=== PATIENT | female | born 1950 | race Caucasian/White ===

== ENCOUNTER 2017-03-24 15:28 | Outpatient (CLI) | payer BC, OTHER | END 2017-03-24 15:29 | disposition home or self-care (01) | LOC: BICMAMMO 15:28 | PROVIDERS: ATTEND Nurse Practitioner | DX: Z12.31 Encounter for screening mammogram for malignant neoplasm of breast (principal); N64.89 Other specified disorders of breast; Z85.3 Personal history of malignant neoplasm of breast | CPT/HCPCS: 77063; 77067 ==

== ENCOUNTER 2017-03-30 14:29 | Outpatient (CLI) | payer BC | END 2017-03-30 14:30 | disposition home or self-care (01) | LOC: BICMAMMO 14:29 | PROVIDERS: ATTEND Internal Medicine | DX: R92.2 Inconclusive mammogram (principal) | CPT/HCPCS: G0279 ==

== ENCOUNTER → 2017-04-01 | Day surgery (SDC) | payer BC | LOC: BICULT 13:02 | PROVIDERS: ATTEND Internal Medicine | PROC: 0H9U3ZX Drainage of Left Breast, Percutaneous Approach, Diagnostic (ICD-10-PCS; principal; 2017-04-01) | DX: C50.512 Malignant neoplasm of lower-outer quadrant of left female breast (principal); Z17.0 Estrogen receptor positive status [ER+] | CPT/HCPCS: 19083; 88305; 88341; 88342; G0206-LT ==

== ENCOUNTER 2017-05-10 17:08 | Outpatient (CLI) | payer BC ==
[2017-05-10 18:01] LABS: #Eosinphils 0.1 thou/uL (0.0-0.7); #Lymphocytes 2.2 thou/uL (1.20-3.40); #Monocytes 0.5 thou/uL (0.11-0.59); #Neutrophils 3.6 thou/uL (1.40-6.50); %Basophils 0.2 % (0.0-1.0); %Eosinophils 1.5 % (0.0-10.0); %Lymphocytes 33.9 % (21.0-51.0); %Monocytes 8.4 % (0.0-10.0); Hemoglobin 12.4 g/dL (12.0-16.0); Mean Corpuscular HGB CONC 32.4 g/dL (32.0-36.0); Mean Corpuscular Hemoglobin 29.5 pg (27.0-31.0); Mean Platelet Volume 7.3 fL (7.4-10.4); Platelet Count 266 thou/uL (130-400); RBC Distribution Width 12.1 % (11.5-14.5); Red Blood Cell (RBC) Count 4.23 mill/uL (4.20-5.40); White Blood Cell (WBC) Count 6.5 thou/uL (4.8-10.8)
[2017-05-10 18:28] LABS: ALT (SGPT) 17 U/L (8-55); AST (SGOT) 19 U/L (5-34); Albumin 4.4 g/dL (3.4-4.8); Alkaline Phosphatase 71 U/L (40-150); Anion Gap 11 mmol/L (10-20); BUN (Urea Nitrogen) 16 mg/dL (9.8-20.1); Bilirubin, Total 0.5 mg/dL (0.2-1.2); Calc. Creatinine Clearance 0 mL/min (70-130); Calcium 9.7 mg/dL (7.8-10.44); Carbon Dioxide 26 mmol/L (23-31); Chloride 105 mmol/L (98-107); Estimated GFR-MDRD 74; Globulin 2.7 g/dL (2.4-3.5); Glucose 87 mg/dL (80-115); Potassium 3.6 mmol/L (3.5-5.1); Protein, Total 7.1 g/dL (6.0-8.3); Sodium 138 mmol/L (136-145)
== END 2017-05-10 17:09 | disposition home or self-care (01) ==
LOC: LABBT 17:08
PROVIDERS: ATTEND Surgery
DX: Z01.818 Encounter for other preprocedural examination (principal); C50.911 Malignant neoplasm of unspecified site of right female breast
CPT/HCPCS: 80053; 85025; 93005; 93010

== ENCOUNTER 2017-05-12 05:44 | Inpatient (IN) | payer BC ==
[2017-05-10 17:39] VITALS: BMI 31.7
[2017-05-12] MEDS ORDERED: CEFAZOLIN/Water 2 GM/20 ML SYRINGE ONE (06:08)
[2017-05-12] MEDS ORDERED: Fentanyl 250 MCG/5 ML VIAL ONE (06:29)
[2017-05-12] MEDS ORDERED: Lidocaine 2% 10 ML INJ ONE (06:54)
[2017-05-12] MEDS ORDERED: Bupivacaine/Epinephrine 0.25% 30 ML VIAL ONE (06:54)
[2017-05-12] MEDS ORDERED: Midazolam HCl 2 mg/2 ml Vial ONE (07:07)
[2017-05-12] MEDS ORDERED: Scopolamine 1.5 mg/72 hour Patch ONE (07:08)
[2017-05-12] MEDS ORDERED: Metoclopramide HCl 10 MG/2 ML VIAL ONE ×2 (08:57→13:18)
[2017-05-12] MEDS ORDERED: Morphine 4 MG/ML VIAL SLOW IVP PRN ×2 (10:23)
[2017-05-12] MEDS ORDERED: HYDROcodone/Acetaminophen 10/325 mg Tablet PO PRN ×2 (10:23)
[2017-05-12] MEDS ORDERED: Dextrose 5% in Water 1,000 ML IV PRN (10:23)
[2017-05-12] MEDS ORDERED: hydrALAZINE 20 MG/ML VIAL SLOW IVP PRN (10:23)
[2017-05-12] MEDS ORDERED: Dextrose 50% Abboject 50 ML SYRINGE SLOW IVP PRN (10:23)
[2017-05-12] MEDS ORDERED: Promethazine HCl 25 MG/ML VIAL IM PRN ×2 (10:23→10:34)
[2017-05-12] MEDS ORDERED: Ondansetron HCl/PF 4 MG/2 ML Vial IVP PRN ×2 (10:23→10:34)
[2017-05-12] MEDS ORDERED: Promethazine HCl 25 MG/ML VIAL SLOW IVP PRN (10:34)
[2017-05-12] MEDS ORDERED: Meperidine HCl/PF 25 MG/ML VIAL SLOW IVP PRN (10:34)
--- NOTE | 2017-05-12 11:31 | OP ---
DATE OF PROCEDURE: 05/12/2017 PREOPERATIVE DIAGNOSIS: Newly diagnosed left breast cancer with history of right breast cancer. SURGEON: Dylon Mahajan M.D. PROCEDURE PERFORMED: Bilateral nipple-sparing mastectomy, MediPort placement. INDICATIONS: This is a 66-year-old female who has had bilateral breast cancer, bilateral radiation t reatments who developed a new lesion on mammography on the left. A core biopsy was positive for rob[address] st cancer. PROCEDURE IN DETAIL: After informed consent was obtained, the patient was taken to the operating raven m and given general endotracheal anesthesia. When her chest was uncovered after she was asleep, she was noted to have a couple of open sores by her manubrium where she just had some skin cancers burned . No one was aware of and the patient did not alert us to this prior to this surgery. The decision was made to proceed as the incisions were going to be much further down. We went ahead and prepped a nd draped everything. A Tegaderm was placed over these couple of sores up by the manubrium. Started on the right, a submammary incision was performed about 1 cm from the mammary crease superior to it . Then the plane was developed between subcutaneous tissue and breast tissue sharply utilizing the p lasma blade. The anterior plane was developed all the way up to the clavicle and then to the sternum medially and to the latissimus laterally and rectus inferiorly. A piece of the subnipple tissue was then removed for frozen section. The breast was then taken off the pectoralis muscle to include the pectoralis fascia utilizing the plasma blade. It was marked with a white suture anterior, blue sutu re superior, black suture lateral and sent to pathology for further analysis. The biopsy came back n egative on the frozen section. Then at this point, 2 drains were placed, 1 placed near the axilla, 1 placed in the inferior transverse portion and then the subcu reapproximated with interrupted 3-0 Stephen ryl. Skin closed with a running subcuticular 4-0 Rapide. I then moved to the left side. Again, an inferior breast incision was made about 1 cm from the subma mmary crease just superior to it. Subcutaneous divided sharply and the plane developed between subcu taneous tissue and breast tissue sharply with the plasma blade all the way to the clavicle superior, the latissimus lateral, the sternum medially and the rectus inferiorly. Then a biopsy was performed of the subnipple tissue, sent for frozen. The breast taken off the pectoralis fascia and marked with a white suture anterior, blue suture superior, black suture lateral. Hemostasis achieved with the p lasma blade. Now on this side I was planning to do the MediPort, but the patient was placed in the T rendelenburg position. The introducer needle inserted. I was able to get a very slow venous blood r eturn. I could not get the wire to advance, so I moved back to the right side. On this side I was a ble to get the good backflow of venous blood. J-wire threaded easily. Fluoroscopy showed good place ment of the wire in the superior vena cava. The incision was reopened and using the tunneling device , a tunnel was created between the pocket and the incision where the wire was coming out. The cathet er brought through this incision. It was connected to the MediPort. The system was flushed with hep arinized saline. The MediPort was then secured to the pectoralis fascia with interrupted 2-0 Prolene suture. The tubing was cut to size. The peel-away introducer inserted over the wire. The wire was removed. The catheter was inserted through the peel-away introducer and the peel-away introducer re moved. Fluoroscopy again used showed good placement in superior vena cava. The system was accessed with Fishman needle. Good backflow of venous blood, flushed with heparinized saline. Then 2 drains we re placed on both sides. The subcutaneous reapproximated with interrupted 3-0 Vicryl. Skin closed w ith a running subcuticular 4-0 Rapide. Dermabond applied. The patient tolerated the procedure well. Both frozen sections were negative. She was transferred to recovery in good condition.
[2017-05-12] MEDS ORDERED: Prevnar 13-Val Conj/PF 0.5 ML SYRINGE IM ONE (13:15)
[2017-05-12] MEDS: D5 1/2 NS w/20 mEq KCL 1,000 ML IV SCH (13:17)
[2017-05-12] MEDS ORDERED: Glycopyrrolate 0.2 MG/ML 5 ML SYRINGE ONE (13:18)
[2017-05-12] MEDS ORDERED: Lidocaine 1% PF 5 ML VIAL ONE (13:18)
[2017-05-12] MEDS ORDERED: Propofol 200 MG/20 ML VIAL ONE (13:18)
[2017-05-12] MEDS ORDERED: Ondansetron HCl/PF 4 MG/2 ML Vial ONE (13:18)
[2017-05-12] MEDS ORDERED: Dexamethasone 20 MG/5 ML VIAL ONE (13:18)
[2017-05-12] MEDS: Famotidine 20 MG TAB PO SCH (21:35)
[2017-05-13] MEDS: D5 1/2 NS w/20 mEq KCL 1,000 ML IV SCH (03:20)
[2017-05-13 04:57] LABS: #Monocytes 0.7 thou/uL (0.11-0.59); #Neutrophils 6.5 thou/uL (1.40-6.50); %Basophils 0.3 % (0.0-1.0); %Eosinophils 0.4 % (0.0-10.0); %Monocytes 7.7 % (0.0-10.0); %Neutrophils 69.6 % (42.0-75.0); Hemoglobin 12.3 g/dL (12.0-16.0); Mean Corpuscular HGB CONC 33.4 g/dL (32.0-36.0); Mean Corpuscular Hemoglobin 29.7 pg (27.0-31.0); Mean Corpuscular Volume 89.2 fl (81.0-99.0); Platelet Count 232 thou/uL (130-400); RBC Distribution Width 12.1 % (11.5-14.5); Red Blood Cell (RBC) Count 4.13 mill/uL (4.20-5.40); White Blood Cell (WBC) Count 9.3 thou/uL (4.8-10.8)
[2017-05-13 05:15] LABS: Anion Gap 5 mmol/L (10-20); BUN (Urea Nitrogen) 11 mg/dL (9.8-20.1); Calc. Creatinine Clearance 111 mL/min (70-130); Calcium 9.2 mg/dL (7.8-10.44); Carbon Dioxide 32 mmol/L (23-31); Chloride 108 mmol/L (98-107); Estimated GFR-MDRD 87; Glucose 121 mg/dL (80-115); Potassium 3.7 mmol/L (3.5-5.1); Sodium 141 mmol/L (136-145)
[2017-05-13] MEDS ORDERED: Enoxaparin Sodium 40 MG/0.4 ML SYRINGE SC SCH (06:00)
[2017-05-13] MEDS: Famotidine 20 MG TAB PO SCH (08:42)
[2017-05-13 08:50] VITALS: BP 147/76; TEMP 97.7
--- NOTE | 2017-05-13 13:25 | DIS ---
DISCHARGE DIAGNOSIS: Left breast cancer with history of right breast cancer. PROCEDURES DURING ADMISSION: Bilateral nipple-sparing mastectomy and MediPort placement. HOSPITAL COURSE: The patient was admitted, taken to surgery. She underwent a bilateral nipple-spari ng mastectomies, intraoperative biopsy of the subnipple tissue was negative for disease. She is doin g well today. Pain is minimal. She has not taken any pain medicine. She is ambulating. She is eat ing well. She is now discharged home in good condition on hydrocodone. She will follow up with me yoselin edwards 2 weeks.
[2017-05-14] MEDS ORDERED: Enoxaparin Sodium 40 MG/0.4 ML SYRINGE SC SCH (09:00)
== END 2017-05-13 10:56 | disposition home or self-care (01) | DRG 583 ==
LOC: SDC 05:44 → SURG B 10:23 → EDSTATUS 10:30
PROVIDERS: ADMIT Surgery; ATTEND Surgery
PROC: 0HTV0ZZ Resection of Bilateral Breast, Open Approach (ICD-10-PCS; principal; 2017-05-12)
PROC: 02HV33Z Insertion of Infusion Device into Superior Vena Cava, Percutaneous Approach (ICD-10-PCS; 2017-05-12)
PROC: B5181ZA Fluoroscopy of Superior Vena Cava using Low Osmolar Contrast, Guidance (ICD-10-PCS; 2017-05-12)
DX: C50.912 Malignant neoplasm of unspecified site of left female breast (principal); C50.911 Malignant neoplasm of unspecified site of right female breast; I10 Essential (primary) hypertension; Z17.0 Estrogen receptor positive status [ER+]
CPT/HCPCS: 36415; 80048; 85025; 88305; 88307; 88331; C1788; J1100; J1642; J1650; J2001; J2250; J2405; J2704; J2765; J3010

== ENCOUNTER 2017-06-22 12:46 | Outpatient (CLI) | payer BC | END 2017-06-22 12:47 | disposition home or self-care (01) | LOC: ULT 12:46 | PROVIDERS: ATTEND Internal Medicine Hematology & Oncology | DX: Z51.11 Encounter for antineoplastic chemotherapy (principal); C50.919 Malignant neoplasm of unspecified site of unspecified female breast; I08.1 Rheumatic disorders of both mitral and tricuspid valves | CPT/HCPCS: 93306 ==

== ENCOUNTER 2017-11-02 13:43 | Outpatient (CLI) | payer BC | END 2017-11-02 13:44 | disposition home or self-care (01) | LOC: ULT 13:43 | PROVIDERS: ATTEND Internal Medicine Hematology & Oncology | DX: C50.919 Malignant neoplasm of unspecified site of unspecified female breast (principal); I08.1 Rheumatic disorders of both mitral and tricuspid valves; T85.79XA Infection and inflammatory reaction due to other internal prosthetic devices, implants and grafts, initial encounter | CPT/HCPCS: 87070; 87205; 93306 ==

== ENCOUNTER 2018-06-10 12:04 | Day surgery (SDC) | payer MEDICARE, OTHER ==
[2018-06-09 11:54] VITALS: BMI 30.5
[2018-06-10] MEDS ORDERED: Heparin 5,000 UNITS/ML VIAL ONE (13:03)
[2018-06-10 13:27] LABS: Anion Gap 11 mmol/L (10-20); BUN (Urea Nitrogen) 19 mg/dL (9.8-20.1); Calc. Creatinine Clearance 102 mL/min (70-130); Calcium 10.1 mg/dL (7.8-10.44); Carbon Dioxide 30 mmol/L (23-31); Chloride 103 mmol/L (98-107); Estimated GFR-MDRD 84; Glucose 102 mg/dL (80-115); Potassium 4.1 mmol/L (3.5-5.1); Sodium 140 mmol/L (136-145)
[2018-06-10] MEDS ORDERED: Fentanyl 100 MCG/2 ML VIAL ONE ×2 (13:57→16:10)
[2018-06-10] MEDS ORDERED: Midazolam HCl 2 mg/2 ml Vial ONE ×2 (13:57→16:10)
[2018-06-10] MEDS ORDERED: Ropivacaine 0.5% HCl/PF (150 MG/30 ML VIAL) ONE (15:18)
[2018-06-10] MEDS ORDERED: Ropivacaine 0.2% HCl/PF (40 MG/20 ML VIAL) ONE (15:18)
[2018-06-10] MEDS ORDERED: Bupivacaine/Epinephrine 0.25% 30 ML VIAL ONE (15:35)
[2018-06-10] MEDS ORDERED: Gentamicin 80 MG/2 ML VIAL ONE ×2 (15:35→16:58)
[2018-06-10] MEDS ORDERED: Sodium Chloride 0.9% 10 ML ONE ×2 (15:35→16:22)
[2018-06-10] MEDS ORDERED: PROPOFOL 200 MG/20 ML VIAL ONE (16:03)
[2018-06-10] MEDS ORDERED: Rocuronium Bromide 10 MG/ML (10ML VIAL) ONE (16:03)
[2018-06-10] MEDS ORDERED: Lidocaine 1% PF 5 ML VIAL ONE (16:03)
[2018-06-10] MEDS ORDERED: Dexamethasone 20 MG/5 ML VIAL ONE (16:03)
[2018-06-10] MEDS ORDERED: ePHEDrine 50 MG/ML VIAL ONE (16:03)
[2018-06-10] MEDS ORDERED: PHENYLEPHRINE-NS 100 MCG/ML 10 ML SYRINGE ONE (16:03)
[2018-06-10] MEDS ORDERED: Ketorolac Tromethamine 30 MG/ML VIAL ONE (16:03)
[2018-06-10] MEDS ORDERED: Ondansetron PF 4 MG/2 ML Vial ONE (16:03)
[2018-06-10] MEDS ORDERED: Lidocaine 2% Jelly 5 ML TUBE ONE (16:10)
[2018-06-10] MEDS ORDERED: Sodium Chloride 0.9% 20 ML ONE (16:58)
[2018-06-10] MEDS ORDERED: Promethazine HCl 25 MG/ML VIAL IM PRN ×2 (20:42→21:14)
[2018-06-10] MEDS ORDERED: Promethazine HCl 25 MG/ML VIAL SLOW IVP PRN (20:42)
[2018-06-10] MEDS ORDERED: Ondansetron HCl/PF 4 MG/2 ML Vial IVP PRN (20:42)
[2018-06-10] MEDS ORDERED: Ondansetron PF 4 MG/2 ML Vial IVP PRN (21:14)
[2018-06-10] MEDS ORDERED: Zolpidem Tartrate 5 MG TAB PO PRN (21:14)
[2018-06-10] MEDS ORDERED: HYDROcodone/Acetaminophen 10/325 mg Tablet PO PRN ×2 (21:14)
[2018-06-10] MEDS ORDERED: traMADol HCl 50 MG TAB PO PRN ×2 (21:14)
[2018-06-10] MEDS ORDERED: Ropivacaine 0.2% 550 ML 550 ML NERVE BLCK SCH ×2 (21:14→21:30)
[2018-06-10] MEDS ORDERED: Fentanyl 100 MCG/2 ML VIAL IV PRN (21:15)
--- NOTE | 2018-06-13 13:03 | OP ---
DATE OF PROCEDURE: 06/10/2018 PREOPERATIVE DIAGNOSES: 1. Breast cancer. 2. Status post bilateral mastectomy. 3. Status post port placement. POSTOPERATIVE DIAGNOSES: 1. Breast cancer. 2. Status post bilateral mastectomy. 3. Status post port placement. PROCEDURE PERFORMED: 1. Removal of right chemotherapy port. 2. Bilateral placement of tissue expanders (94338.50). 3. Bilateral placement of acellular dermal matrix for breast reconstruction (12.5 x 20 cm) (00934.50). DESCRIPTION OF PROCEDURE: Following induction of adequate anesthesia, the patient was prepped and draped in usual sterile fashion in supine position. Attention was first turned to the right mastectomy. An inframammary crease incision was made. Dissection was carried sharply down to the pectoral fascia. Subsequently, an adequate prepectoral pocket was created. The port was identified just above the level of the nipple areola. This was released from its Prolene attachments. The port hole was closed with series of 2-0 PDS sutures. The remainder of the prepectoral pocket was then created to accommodate the 11 cm smooth round high-profile [place] tissue ink technician. The tissue ink technician was secured at the 3 inferior suture tabs with 2-0 Prolene suture. Strattice acellular dermal matrix was secured to the anterior surface of the ink technician and along the inframammary crease using 2-0 PDS suture. The pocket was closed with zero PDS suture and 3-0 Monocryl suture. The ink technician was filled to a volume of 200 mL. Similar procedure for placement of the tissue ink technician and acellular dermal matrix was done on the contralateral left side. All pockets were copiously irrigated and inspected for meticulous hemostasis and antibiotics were placed in each pocket prior to closure. The patient tolerated the procedure well. Job ID: [id number]
== END 2018-06-10 22:00 | disposition home or self-care (01) ==
LOC: SDC 12:04
PROVIDERS: ATTEND Plastic Surgery
PROC: 0JPT3WZ Removal of Totally Implantable Vascular Access Device from Trunk Subcutaneous Tissue and Fascia, Percutaneous Approach (ICD-10-PCS; principal; 2018-06-10)
PROC: 0HHV0NZ Insertion of Tissue Expander into Bilateral Breast, Open Approach (ICD-10-PCS; 2018-06-10)
PROC: 0HHV0NZ Insertion of Tissue Expander into Bilateral Breast, Open Approach (ICD-10-PCS; 2018-06-10)
DX: C50.919 Malignant neoplasm of unspecified site of unspecified female breast (principal); I10 Essential (primary) hypertension; Z79.811 Long term (current) use of aromatase inhibitors; Z79.899 Other long term (current) drug therapy
CPT/HCPCS: 15777; 19357; 36590; 80048; 93005; A4306; C1713; 88305; 93010; J0690; J1100; J1580; J1644; J1885; J2001; J2250; J2405; J2704; J2795; J3010; J3370; J3490

== ENCOUNTER 2019-02-24 08:38 | Day surgery (SDC) | payer MEDICARE, OTHER ==
[2019-02-24] MEDS ORDERED: Heparin 5,000 UNITS/ML VIAL ONE (09:31)
[2019-02-24] MEDS ORDERED: Fentanyl 250 MCG/5 ML VIAL ONE (10:34)
[2019-02-24] MEDS ORDERED: Gentamicin 80 MG/2 ML VIAL ONE (10:44)
[2019-02-24] MEDS ORDERED: Bupivacaine 0.25% HCL 30 ML VIAL ONE (10:44)
[2019-02-24] MEDS ORDERED: EPINEPHrine 1 MG/ML AMP ONE ×2 (10:44→13:11)
[2019-02-24] MEDS ORDERED: Propofol 500 MG/50 ML VIAL ONE (10:46)
[2019-02-24] MEDS ORDERED: Midazolam HCl 2 mg/2 ml Vial ONE (12:32)
[2019-02-24] MEDS ORDERED: Lidocaine 1% PF 5 ML VIAL ONE (13:05)
[2019-02-24] MEDS ORDERED: Ketorolac Tromethamine 30 MG/ML VIAL ONE (13:05)
[2019-02-24] MEDS ORDERED: Dexamethasone 20 MG/5 ML VIAL ONE (13:05)
[2019-02-24] MEDS ORDERED: PROPOFOL 200 MG/20 ML VIAL ONE (13:05)
[2019-02-24] MEDS ORDERED: ePHEDrine/0.9% NaCl/PF SYRINGE 50 mg/10 ml ONE (13:05)
[2019-02-24] MEDS ORDERED: Ondansetron PF 4 MG/2 ML Vial ONE (13:05)
[2019-02-24] MEDS ORDERED: PHENYLEPHRINE-NS 100 MCG/ML 10 ML SYRINGE ONE (13:05)
--- NOTE | 2019-02-24 18:18 | OP ---
DATE OF PROCEDURE: 02/24/2019 PREOPERATIVE DIAGNOSES: 1. Breast cancer. 2. Status post bilateral breast reconstruction or tissue lead software test engineer reconstruction. 3. History of bilateral radiation. PROCEDURES PERFORMED: 1. Bilateral replacement of tissue expanders with permanent breast prosthesis with capsular work (93686.50). 2. Bilateral fat grafting (33341). OPERATIVE FINDINGS: Right breast implant, Chloe, reference #[id number], serial #[id number]. Left breast implant, Chloe, reference #[id number] and serial #[id number]. DESCRIPTION OF PROCEDURE: Following the induction of adequate anesthesia, the patient was prepped and draped in the usual sterile fashion in the supine position. Attention was first turned to the right breast. The inframammary crease scar was incised. Dissection was carried sharply down through the subcutaneous tissues to identify the underlying lead software test engineer, which was deflated and removed. The Strattice acellular dermal matrix did not have incorporation and was removed. The pocket was then opened with capsulotomies at the base. A Sizer was placed to determine what implant would give the best symmetry. A 490 mL implant was chosen on the right. The pocket was copiously irrigated with dilute antibiotic solution followed by dilute Betadine solution prior to placement of a skin barrier and the final breast prosthesis. The incision was closed with 3-0 PDS suture and 3-0 Monocryl suture. A similar procedure was done on the left side except a 535 mL implant was chosen. Attention was turned to the abdomen. Tumescent fluid was injected into the lower half of the abdomen. Fat was then harvested and allowed to separate. The fluid was then decanted, and the fat was injected using a micro-droplet technique through stab incisions. It was done on the lower inner quadrant of each breast. The stab incisions for the liposuction and fat grafting were closed with 5-0 fast gut suture. The patient tolerated the procedure well. Job ID: [id number]
--- NOTE | 2019-02-28 10:30 | EKG ---
Test Reason : PREOP Blood Pressure : / mmHG Vent. Rate : 087 BPM Atrial Rate : 087 BPM P-R Int : 168 ms QRS Dur : 084 ms QT Int : 408 ms P-R-T Axes : 061 007 055 degrees QTc Int : 490 ms Normal sinus rhythm Prolonged QT Abnormal ECG When compared with ECG of 10-JUN-2018 13:32, No significant change was found Confirmed by DAVY SULLIVAN (2) on 02/28/2019 10:29:44 AM Referred By: GIOVANNI Confirmed By:DAVY SULLIVAN
--- NOTE | 2019-03-02 05:58 | PQF ---
[facility] POST DISCHARGE CLINICAL DOCUMENTATION IMPROVEMENT CLARIFICATION FORM l Todays Date: 02/28/19 l Patients Name BRANDYN HATFIELD l l Admit Date 02/24/19 l Disch Date 02/24/19 Copyright Manager Name Lm Land Email: [email or web address] Cell: [phone] To be completed by Copyright Manager: Present Clinical Indicators - Signs / Symptoms Results and Location in Medical Record [ ] Documentation of: [ ] [ ] Documentation of: [ ] [ ] Documentation of: [ ] [ ] Documentation of: [ ] [ ] Risks [ ] [ ] [ ] Treatment [ ] Fat graft for breasts via liposuction Query for volume (cc) of fat injected into breasts [ ] 30 cc of fat were injected into each breast [ ] To be completed by Physician: DR. CAROL DAVILA The documentation in this patients record requires clarification to ensure coding compliance and accuracy. Check the appropriate box and include in your discharge summary. [ ] [ ] [ ] [ ] Please check this box if this does not apply to this patient [ ] Unable to determine [ ] Other diagnosis: Review the following information and exercise your independent professional judgment in responding to the clarification. Based upon the clinical findings, risk factors, and treatment, please clarify if you are treating one of the above probable or suspected diagnoses. Physician Signature: Date Time MTDD
== END 2019-02-24 16:23 | disposition home or self-care (01) ==
LOC: SDC 08:38
PROVIDERS: ATTEND Plastic Surgery
PROC: 0HPU0NZ Removal of Tissue Expander from Left Breast, Open Approach (ICD-10-PCS; principal; 2019-02-24)
PROC: 0HPT0NZ Removal of Tissue Expander from Right Breast, Open Approach (ICD-10-PCS; 2019-02-24)
PROC: 0HRV0JZ Replacement of Bilateral Breast with Synthetic Substitute, Open Approach (ICD-10-PCS; 2019-02-24)
PROC: 0HUV37Z Supplement Bilateral Breast with Autologous Tissue Substitute, Percutaneous Approach (ICD-10-PCS; 2019-02-24)
DX: Z42.1 Encounter for breast reconstruction following mastectomy (principal); I10 Essential (primary) hypertension; Z85.3 Personal history of malignant neoplasm of breast; Z79.83 Long term (current) use of bisphosphonates; Z79.899 Other long term (current) drug therapy
CPT/HCPCS: 93005; 93010; J0171; J0690; J1100; J1580; J1644; J1885; J2001; J2250; J2405; J2704; J3010; J3370; J3490; S0020

== ENCOUNTER 2021-04-15 11:45 | Outpatient (CLI) | payer MEDICARE, OTHER | END 2021-04-15 11:46 | disposition home or self-care (01) | LOC: PET 11:45 | PROVIDERS: ATTEND Internal Medicine Hematology & Oncology | DX: C50.911 Malignant neoplasm of unspecified site of right female breast (principal); C50.912 Malignant neoplasm of unspecified site of left female breast | CPT/HCPCS: 78815; A9552 ==

== ENCOUNTER 2021-06-18 13:46 | Outpatient (CLI) | payer MEDICARE, OTHER | END 2021-06-18 13:47 | disposition home or self-care (01) | LOC: ULT 13:46 | PROVIDERS: ATTEND Internal Medicine Hematology & Oncology | DX: Z51.11 Encounter for antineoplastic chemotherapy (principal); C50.911 Malignant neoplasm of unspecified site of right female breast; C50.912 Malignant neoplasm of unspecified site of left female breast; I35.8 Other nonrheumatic aortic valve disorders; Z79.899 Other long term (current) drug therapy | CPT/HCPCS: 93306 ==